=== PATIENT | male | born 2000 ===

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

== ENCOUNTER 2019-07-26 20:12 | Emergency (ER) | payer OTHER ==
[2019-07-26 20:26] VITALS: BP 109/73
--- NOTE | 2019-07-26 20:34 | UC ---
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 He vomited prior to arrival. - History of Current Complaint Chief Complaint: UCGeneralIllness Stated Complaint: SORE THROAT Time Seen by Provider: 07/26/19 20:14 Hx Obtained From: Patient Onset/Duration: Gradual Onset Severity: Mild Pain Intensity: 5 Associated Signs & Symptoms: Positive: Fever - Allergies/Home Medications Allergies/Adverse Reactions: Allergies Allergy/AdvReac Type Severity Reaction Status Date / Time No Known Allergies Allergy Verified 07/26/19 20:26 Home Medications: Home Medications Ibuprofen TAB* [Motrin TAB* 400 MG] 400 mg PO Q6H PRN 07/26/19 [History Confirmed 07/26/19] Pheniramine/P-Eph/Acetaminophn [Theraflu Flu & Sore Throa] 1 tramaine PO Q6H [History Confirmed 07/26/19] PMH/Surg Hx/FS Hx/Imm Hx Previously Healthy: Yes - Surgical History Surgical History: Yes Surgery Procedure, Year, and Place: wisdom teeth - Family History Known Family History: Positive: Non-Contributory - Social History Occupation: Student Lives: Dormitory/Roommates Alcohol Use: Weekly Substance Use Type: Marijuana Substance Use Comment - Amount & Last Used: weekly Smoking Status (MU): Never Smoked Tobacco Review of Systems All Other Systems Reviewed And Are Negative: Yes Constitutional: Positive: Fever ENT: Positive: Sore Throat Gastrointestinal: Positive: Vomiting - Vomited one time prior to arrival Is Patient Immunocompromised?: No Physical Exam Triage Information Reviewed: Yes Appearance: Well-Appearing, No Pain Distress, Well-Nourished Vital Signs: Initial Vital Signs Temp 99.8 F 07/26/19 20:23 Pulse 100 07/26/19 20:23 Resp 18 07/26/19 20:23 BP 109/73 07/26/19 20:23 Pulse Ox 99 07/26/19 20:23 Vital Signs Reviewed: Yes Eyes: Positive: Conjunctiva Clear ENT: Positive: Hearing grossly normal, Pharyngeal erythema, TMs normal, Tonsillar swelling, Tonsillar exudate, Uvula midline. Negative: Trismus, Muffled voice, Hoarse voice Neck: Positive: Supple, Nontender, No Lymphadenopathy Respiratory: Positive: Lungs clear, Normal breath sounds, No respiratory distress, No accessory muscle use Cardiovascular: Positive: RRR, No Murmur, Pulses Normal, Brisk Capillary Refill Abdomen Description: Positive: Nontender, No Organomegaly, Soft. Negative: CVA Tenderness (R), CVA Tenderness (L) Bowel Sounds: Positive: Present Musculoskeletal Exam: Normal Neurological Exam: Normal Psychological Exam: Normal Skin Exam: Normal Throat Pain/Nasal Course/Dx - Course Course Of Treatment: Rapid strep: negative I'm going to treat the patient for tonsillitis. He was given amoxicillin 500 mg by mouth here and to continue amoxicillin 875 mg by mouth twice a day 10 days. He is to change toothbrush in 24 hours. Go home and rest and take Tylenol every 4 hours for fever may alternate that with Motrin every 8 hours for fever or pain. - Differential Dx/Diagnosis Provider Diagnosis: Tonsillitis Discharge ED - Sign-Out/Discharge Documenting (check all that apply): Patient Departure All imaging exams completed and their final reports reviewed: No Studies - Discharge Plan Condition: Fair Disposition: HOME Prescriptions: Amoxicillin PO (*) [Amoxicillin 875 MG (*)] 875 mg PO BID 10 Days #19 tab Patient Education Materials: Tonsillitis (ED) Referrals: [facility] [Z.BUSINESS, APPLICATION, OTHER] - No Primary Care Phys,NOPCP [Primary Care Provider] - Additional Instructions: Increase fluids. May take Tylenol every 4 hours and alternate with Motrin every 8 hours for pain or fever. Change your toothbrush in 24 hours. [facility]- [facility] with [facility] if no improvement in 3 or 4 days. - Billing Disposition and Condition Condition: FAIR Disposition: Home - Attestation Statements Provider Attestation: Per institutional requirements, I have reviewed the chart, however, I was not consulted specifically or made aware of this patient by the midlevel provider. I did not personally evaluate, interact with , or disposition this patient.
[2019-07-26] MEDS ORDERED: Amoxicillin PO (*) 500 MG CAP PO ONE (20:49)
== END 2019-07-26 20:55 | disposition home or self-care (01) ==
LOC: UCEAST 20:12
DX: J03.90 Acute tonsillitis, unspecified (principal)
CPT/HCPCS: 87651; 99212; A9270-GY; G0463